=== PATIENT | female | born 1990 | race African-American/Black ===

== ENCOUNTER 2020-09-26 12:51 | Emergency (ER) | payer SELFPAY ==
[2020-09-26 14:14] LABS: #Lymphocytes 1.2 thou/uL (1.20-3.40); #Monocytes 0.4 thou/uL (0.11-0.59); #Neutrophils 1.2 thou/uL (1.40-6.50); %Basophils 1.5 % (0.0-1.0); %Eosinophils 1.7 % (0.0-10.0); %Monocytes 13.4 % (0.0-10.0); %Neutrophils 41.4 % (42.0-75.0); Hemoglobin 12.4 g/dL (12.0-16.0); Mean Corpuscular Hemoglobin 27.6 pg (27.0-31.0); Mean Corpuscular Volume 88.9 fL (78.0-98.0); Mean Platelet Volume 9.8 fL (7.4-10.4); Platelet Count 212 thou/uL (130-400); RBC Distribution Width 14.3 % (11.5-14.5); Red Blood Cell (RBC) Count 4.48 mill/uL (4.20-5.40); White Blood Cell (WBC) Count 2.8 thou/uL (4.8-10.8)
[2020-09-26 14:32] LABS: ALT (SGPT) 13 U/L (8-55); AST (SGOT) 17 U/L (5-34); Albumin 3.5 g/dL (3.5-5.0); Alkaline Phosphatase 54 U/L (40-110); Anion Gap 12 mmol/L (10-20); BUN (Urea Nitrogen) 10 mg/dL (7.0-18.7); Bilirubin, Total 0.7 mg/dL (0.2-1.2); Calc. Creatinine Clearance 0 mL/min (70-130); Calcium 8.8 mg/dL (7.8-10.44); Carbon Dioxide 21 mmol/L (22-29); Chloride 108 mmol/L (98-107); Glucose 102 mg/dL (70-105); Potassium 3.3 mmol/L (3.5-5.1); Protein, Total 8.5 g/dL (6.0-8.3); Sodium 138 mmol/L (136-145)
[2020-09-26] MEDS ORDERED: Ondansetron PF 4 MG/2 ML Vial ONE (14:54)
[2020-09-26] MEDS ORDERED: Sodium Chloride 0.9% 1,000 ML ONE (14:54)
[2020-09-26] MEDS ORDERED: methylPREDNISolone Sod Succ/PF 125 MG/2 ML VIAL ONE (14:54)
[2020-09-26 15:58] LABS: Bilirubin Negative (Negative); Blood, Urine Negative (Negative); Clarity Slightly Cloudy (Clear); Glucose, Urine (Dipstick) Negative (Negative); Ketone, Urine Negative (Negative); Leukocyte Trace (Negative); Nitrite Negative (Negative); Protein, Urine (Dipstick) 30 mg/dL (Neg-Trace); Specific Gravity, Urine 1.025 (1.005-1.030); Urobilinogen 0.2 mg/dL (Less than 2)
[2020-09-26 16:00] LABS: Pregnancy Test - Urine (BHCG) Negative (Negative); Pregu Control Background? CLEAR/WHITE (CLR/WHITE); Pregu Control Bar Appear? YES (CONTROL BAR); Specific Gravity 1.025 (1.002-1.036)
[2020-09-26 16:04] LABS: RBC/HPF 0-3 HPF (0-3)
[2020-09-26 16:05] LABS: Bacteria/HPF 2+ HPF (None Seen)
== END 2020-09-26 16:41 | disposition home or self-care (01) ==
LOC: NAV ERS 12:51
DX: L93.0 Discoid lupus erythematosus (principal); R11.2 Nausea with vomiting, unspecified
CPT/HCPCS: 36415; 80053; 81003; 81015; 81025; 85025; 96374; 96375; J2405; J2930; J7050

== ENCOUNTER 2020-12-08 19:26 | Emergency (ER) | payer SELFPAY ==
[2020-12-08 21:27] LABS: #Basophils 0.1 thou/uL (0.0-0.2); #Eosinphils 0.1 thou/uL (0.0-0.7); #Lymphocytes 1.7 thou/uL (1.20-3.40); #Monocytes 0.5 thou/uL (0.11-0.59); #Neutrophils 1.3 thou/uL (1.40-6.50); %Eosinophils 2.1 % (0.0-10.0); %Lymphocytes 46.1 % (21.0-51.0); %Monocytes 14.4 % (0.0-10.0); %Neutrophils 35.5 % (42.0-75.0); Hemoglobin 13.5 g/dL (12.0-16.0); Mean Corpuscular HGB CONC 31.1 g/dL (32.0-36.0); Mean Corpuscular Hemoglobin 28.7 pg (27.0-31.0); Mean Corpuscular Volume 92.5 fL (78.0-98.0); Platelet Count 250 thou/uL (130-400); RBC Distribution Width 15.5 % (11.5-14.5); Red Blood Cell (RBC) Count 4.71 mill/uL (4.20-5.40); White Blood Cell (WBC) Count 3.8 thou/uL (4.8-10.8)
[2020-12-08] MEDS ORDERED: Promethazine 25 MG TAB ONE (21:35)
[2020-12-08 21:43] LABS: Bilirubin Negative (Negative); Blood, Urine Negative (Negative); Clarity Clear (Clear); Glucose, Urine (Dipstick) Negative (Negative); Ketone, Urine Negative (Negative); Leukocyte Negative (Negative); Nitrite Negative (Negative); Protein, Urine (Dipstick) 100 mg/dL (Neg-Trace); Urobilinogen 0.2 mg/dL (Less than 2); pH, Urine 5.5 (5.0-9.0)
[2020-12-08 21:45] LABS: Pregnancy Test - Urine (BHCG) Negative (Negative); Pregu Control Background? CLEAR/WHITE (CLR/WHITE); Pregu Control Bar Appear? YES (CONTROL BAR)
[2020-12-08 21:45] LABS: ALT (SGPT) 18 U/L (8-55); AST (SGOT) 32 U/L (5-34); Albumin 3.4 g/dL (3.5-5.0); Alkaline Phosphatase 58 U/L (40-110); Anion Gap 13 mmol/L (10-20); BUN (Urea Nitrogen) 8 mg/dL (7.0-18.7); Bilirubin, Total 0.4 mg/dL (0.2-1.2); Calc. Creatinine Clearance 0 mL/min (70-130); Calcium 8.5 mg/dL (7.8-10.44); Carbon Dioxide 19 mmol/L (22-29); Chloride 109 mmol/L (98-107); Globulin 5.9 g/dL (2.4-3.5); Glucose 95 mg/dL (70-105); Lipase 56 U/L (8-78); Potassium 4.7 mmol/L (3.5-5.1); Protein, Total 9.3 g/dL (6.0-8.3); Sodium 136 mmol/L (136-145)
[2020-12-08 21:47] LABS: Bacteria/HPF Rare-Few HPF (None Seen); RBC/HPF 0-3 HPF (0-3); WBC/HPF 0-3 HPF (0-3)
[2020-12-08] MEDS ORDERED: Ondansetron ODT 4 MG TAB ONE (22:42)
== END 2020-12-08 23:56 | disposition short-term general hospital (02) ==
LOC: NAV ERS 19:26
DX: R11.2 Nausea with vomiting, unspecified (principal); R10.816 Epigastric abdominal tenderness; R19.7 Diarrhea, unspecified; I10 Essential (primary) hypertension; R50.9 Fever, unspecified; R63.8 Other symptoms and signs concerning food and fluid intake; R21 Rash and other nonspecific skin eruption; Z79.899 Other long term (current) drug therapy; Z79.01 Long term (current) use of anticoagulants
CPT/HCPCS: 71045; 80053; 81003; 81015; 81025; 83605; 83690; 85025; Q0162; Q0169

== ENCOUNTER 2021-02-02 13:20 | Emergency (ER) | payer OTHER ==
[2021-02-02] MEDS ORDERED: methylPREDNISolone Sod Succ/PF 125 MG/2 ML VIAL ONE (14:34)
[2021-02-02] MEDS ORDERED: Prochlorperazine 10 MG/2 ML VIAL ONE (14:34)
[2021-02-02] MEDS ORDERED: Sodium Chloride 0.9% 1,000 ML ONE (14:34)
[2021-02-02 15:07] LABS: Hemoglobin 12.6 g/dL (12.0-16.0); Mean Corpuscular HGB CONC 31.2 g/dL (32.0-36.0); Mean Corpuscular Hemoglobin 28.4 pg (27.0-31.0); Mean Platelet Volume 9.8 fL (7.4-10.4); Platelet Count 241 thou/uL (130-400); RBC Distribution Width 14.2 % (11.5-14.5); Red Blood Cell (RBC) Count 4.43 mill/uL (4.20-5.40); White Blood Cell (WBC) Count 3.5 thou/uL (4.8-10.8)
[2021-02-02 15:19] LABS: ALT (SGPT) 35 U/L (8-55); AST (SGOT) 31 U/L (5-34); Albumin 3.3 g/dL (3.5-5.0); Alkaline Phosphatase 61 U/L (40-110); Anion Gap 9 mmol/L (10-20); BUN (Urea Nitrogen) 7 mg/dL (7.0-18.7); Bilirubin, Total 0.5 mg/dL (0.2-1.2); Calc. Creatinine Clearance 0 mL/min (70-130); Calcium 8.7 mg/dL (7.8-10.44); Carbon Dioxide 24 mmol/L (22-29); Chloride 107 mmol/L (98-107); Globulin 5.7 g/dL (2.4-3.5); Glucose 96 mg/dL (70-105); Potassium 3.4 mmol/L (3.5-5.1); Sodium 137 mmol/L (136-145)
[2021-02-02 15:21] LABS: Anisocytosis SLIGHT = 6-15 cells (100X) (0-5/hpf); Band 1 % (5-11); Eosinophils 2 % (0-10); Lymphocytes 35 % (21-51); MDiff Complete? YES; Manual Diff?? YES; Monocytes 5 % (0-10); Neutrophil 57 % (42-75)
[2021-02-02] MEDS ORDERED: cloNIDine 0.1 MG TAB ONE (16:34)
[2021-02-02] MEDS ORDERED: Doxycycline 100 MG CAP ONE (16:58)
[2021-02-02] MEDS ORDERED: hydrALAZINE 20 MG/ML VIAL ONE (17:32)
== END 2021-02-02 18:25 | disposition home or self-care (01) ==
LOC: NAV ERS 13:20
DX: R51.9 Headache, unspecified (principal); I10 Essential (primary) hypertension; M32.9 Systemic lupus erythematosus, unspecified; Z79.899 Other long term (current) drug therapy; Z79.01 Long term (current) use of anticoagulants
CPT/HCPCS: 80053; 85025; 96374; 96375; J0360; J0780; J2930; J7050

== ENCOUNTER 2021-03-03 17:37 | Emergency (ER) | payer OTHER, SELFPAY ==
[2021-03-03 18:47] LABS: Bilirubin Negative (Negative); Blood, Urine Large (Negative); Clarity Clear (Clear); Glucose, Urine (Dipstick) Negative (Negative); Ketone, Urine Negative (Negative); Leukocyte Negative (Negative); Nitrite Negative (Negative); Protein, Urine (Dipstick) 30 mg/dL (Neg-Trace); Specific Gravity, Urine 1.025 (1.005-1.030); Urobilinogen 0.2 mg/dL (Less than 2)
[2021-03-03 18:54] LABS: RBC/HPF 0-3 HPF (0-3); Squamous Epithelial 0-3 HPF (0-3); WBC/HPF 0-3 HPF (0-3)
[2021-03-03] MEDS ORDERED: HYDROcodone/Acetaminophen 10/325 mg Tablet ONE (19:08)
[2021-03-03 20:06] LABS: #Basophils 0.1 thou/uL (0.0-0.2); #Lymphocytes 1.2 thou/uL (1.20-3.40); #Monocytes 0.5 thou/uL (0.11-0.59); #Neutrophils 2.1 thou/uL (1.40-6.50); %Basophils 1.5 % (0.0-1.0); %Eosinophils 1.1 % (0.0-10.0); %Lymphocytes 30.9 % (21.0-51.0); %Monocytes 13.6 % (0.0-10.0); %Neutrophils 52.9 % (42.0-75.0); Hemoglobin 13.6 g/dL (12.0-16.0); Mean Corpuscular HGB CONC 30.7 g/dL (32.0-36.0); Mean Corpuscular Hemoglobin 28.5 pg (27.0-31.0); Mean Corpuscular Volume 92.6 fL (78.0-98.0); Mean Platelet Volume 10.2 fL (7.4-10.4); Platelet Count 220 thou/uL (130-400); Red Blood Cell (RBC) Count 4.76 mill/uL (4.20-5.40); White Blood Cell (WBC) Count 3.9 thou/uL (4.8-10.8)
[2021-03-03 20:22] LABS: ALT (SGPT) 20 U/L (8-55); AST (SGOT) 21 U/L (5-34); Albumin 3.4 g/dL (3.5-5.0); Alkaline Phosphatase 67 U/L (40-110); Anion Gap 13 mmol/L (10-20); BUN (Urea Nitrogen) 9 mg/dL (7.0-18.7); Bilirubin, Total 0.6 mg/dL (0.2-1.2); Calc. Creatinine Clearance 0 mL/min (70-130); Calcium 8.9 mg/dL (7.8-10.44); Carbon Dioxide 20 mmol/L (22-29); Chloride 108 mmol/L (98-107); Globulin 5.4 g/dL (2.4-3.5); Glucose 93 mg/dL (70-105); Potassium 3.6 mmol/L (3.5-5.1); Protein, Total 8.8 g/dL (6.0-8.3); Sodium 137 mmol/L (136-145)
[2021-03-03] MEDS ORDERED: predniSONE 20 MG TAB ONE (22:05)
[2021-03-03 22:24] LABS: SARS-CoV-2 NAA Rapid Test DETECTED (NotDetected)
[2021-03-03] MEDS ORDERED: Amlodipine 5 MG TAB ONE (23:04)
== END 2021-03-04 00:54 | disposition home or self-care (01) ==
LOC: NAV ERS 17:37
DX: U07.1 COVID-19 (principal); L30.8 Other specified dermatitis; E66.09 Other obesity due to excess calories; I10 Essential (primary) hypertension; Z79.01 Long term (current) use of anticoagulants; Z79.899 Other long term (current) drug therapy
CPT/HCPCS: 80053; 81003; 81015; 83605; 85025; 87086; 99283; J7512; U0002

== ENCOUNTER 2021-07-06 21:51 | Emergency (ER) | payer SELFPAY ==
[2021-07-06 23:51] LABS: #Basophils 0.1 thou/uL (0.0-0.2); #Eosinphils 0.2 thou/uL (0.0-0.7); #Lymphocytes 1.7 thou/uL (1.20-3.40); #Monocytes 0.5 thou/uL (0.11-0.59); #Neutrophils 2.6 thou/uL (1.40-6.50); %Basophils 1.8 % (0.0-1.0); %Eosinophils 3.3 % (0.0-10.0); %Lymphocytes 33.5 % (21.0-51.0); %Monocytes 10.7 % (0.0-10.0); %Neutrophils 50.7 % (42.0-75.0); Hemoglobin 11.9 g/dL (12.0-16.0); Mean Corpuscular HGB CONC 30.5 g/dL (32.0-36.0); Mean Corpuscular Hemoglobin 26.8 pg (27.0-31.0); Mean Corpuscular Volume 87.9 fL (78.0-98.0); Mean Platelet Volume 10.4 fL (7.4-10.4); Platelet Count 286 thou/uL (130-400); RBC Distribution Width 13.7 % (11.5-14.5); Red Blood Cell (RBC) Count 4.45 mill/uL (4.20-5.40); White Blood Cell (WBC) Count 5.1 thou/uL (4.8-10.8)
[2021-07-07 00:02] LABS: ALT (SGPT) 16 U/L (8-55); AST (SGOT) 23 U/L (5-34); Albumin 3.6 g/dL (3.5-5.0); Alkaline Phosphatase 65 U/L (40-110); Anion Gap 17 mmol/L (10-20); BUN (Urea Nitrogen) 6 mg/dL (7.0-18.7); Bilirubin, Total 0.5 mg/dL (0.2-1.2); CRP (Inflammatory) Less than 0.50 mg/dL (= or < 0.5); Calc. Creatinine Clearance 0 mL/min (70-130); Calcium 9.2 mg/dL (7.8-10.44); Carbon Dioxide 21 mmol/L (22-29); Chloride 107 mmol/L (98-107); Globulin 5.1 g/dL (2.4-3.5); Glucose 99 mg/dL (70-105); Potassium 3.5 mmol/L (3.5-5.1); Protein, Total 8.7 g/dL (6.0-8.3); Sodium 141 mmol/L (136-145)
[2021-07-07] MEDS ORDERED: diphenhydrAMINE 50 MG/ML VIAL ONE (00:17)
[2021-07-07] MEDS ORDERED: Morphine 4 MG/ML VIAL ONE (00:17)
[2021-07-07 01:42] LABS: Clarity Clear (Clear); Glucose, Urine (Dipstick) Negative (Negative); Leukocyte Negative (Negative); Nitrite Negative (Negative); Protein, Urine (Dipstick) 30 mg/dL (Neg-Trace); Specific Gravity, Urine 1.025 (1.005-1.030)
[2021-07-07 01:43] LABS: Bilirubin Small (Negative); Blood, Urine Negative (Negative); Ketone, Urine Trace mg/dL (Negative); Urobilinogen 0.2 mg/dL (Less than 2)
[2021-07-07 01:47] LABS: Bacteria/HPF None Seen HPF (None Seen); RBC/HPF 0-3 HPF (0-3); WBC/HPF 0-3 HPF (0-3)
[2021-07-07] MEDS ORDERED: methylPREDNISolone Sod Succ/PF 125 MG/2 ML VIAL ONE (02:07)
== END 2021-07-07 03:00 | disposition home or self-care (01) ==
LOC: NAV ERS 21:51
DX: L93.1 Subacute cutaneous lupus erythematosus (principal); L40.9 Psoriasis, unspecified; I10 Essential (primary) hypertension; Z79.899 Other long term (current) drug therapy
CPT/HCPCS: 80053; 81003; 81015; 85025; 86140; 96374; 96375; J1200; J2270; J2930

== ENCOUNTER 2021-09-15 15:55 | Emergency (ER) | payer OTHER, SELFPAY | END 2021-09-15 17:43 | disposition home or self-care (01) | LOC: NAV ERS 15:55 | DX: L93.1 Subacute cutaneous lupus erythematosus (principal); I10 Essential (primary) hypertension; Z86.718 Personal history of other venous thrombosis and embolism; Z79.01 Long term (current) use of anticoagulants; Z79.899 Other long term (current) drug therapy | CPT/HCPCS: 99282 ==

== ENCOUNTER 2021-12-07 09:32 | Emergency (ER) | payer BC ==
[2021-12-07] MEDS ORDERED: Acetaminophen/Codeine 30-300mg Tablet ONE (10:29)
[2021-12-07] MEDS ORDERED: Clindamycin 150 MG CAP ONE (10:30)
== END 2021-12-07 10:40 | disposition home or self-care (01) ==
LOC: NAV ERS 09:32
DX: H60.93 Unspecified otitis externa, bilateral (principal); L01.00 Impetigo, unspecified; I10 Essential (primary) hypertension; Z79.899 Other long term (current) drug therapy
CPT/HCPCS: 87070; 87077; 87205; 99283

== ENCOUNTER 2022-02-20 12:35 | Emergency (ER) | payer BC ==
[2022-02-20] MEDS ORDERED: diphenhydrAMINE 50 MG/ML VIAL ONE (13:15)
[2022-02-20] MEDS ORDERED: Vancomycin 1 GM VIAL ONE (13:16)
[2022-02-20] MEDS ORDERED: Sodium Chloride 0.9% 500 ML ONE (13:16)
[2022-02-20] MEDS ORDERED: Fentanyl 100 MCG/2 ML VIAL ONE (13:16)
[2022-02-20 13:44] LABS: #Basophils 0.1 thou/uL (0.0-0.2); #Eosinphils 0.1 thou/uL (0.0-0.7); #Lymphocytes 0.9 thou/uL (1.20-3.40); #Monocytes 0.5 thou/uL (0.11-0.59); #Neutrophils 2.4 thou/uL (1.40-6.50); %Basophils 1.9 % (0.0-1.0); %Eosinophils 3.5 % (0.0-10.0); %Lymphocytes 22.7 % (21.0-51.0); %Monocytes 13.1 % (0.0-10.0); %Neutrophils 58.8 % (42.0-75.0); Hemoglobin 12.5 g/dL (12.0-16.0); Mean Corpuscular HGB CONC 31.4 g/dL (32.0-36.0); Mean Corpuscular Hemoglobin 28.6 pg (27.0-31.0); Mean Platelet Volume 9.4 fL (7.4-10.4); Platelet Count 215 10x3/uL (130-400); RBC Distribution Width 13.3 % (11.5-14.5); Red Blood Cell (RBC) Count 4.37 mill/uL (4.20-5.40); White Blood Cell (WBC) Count 4.1 10x3/uL (4.8-10.8)
[2022-02-20 14:00] LABS: ALT (SGPT) 13 U/L (8-55); AST (SGOT) 16 U/L (5-34); Albumin 3.4 g/dL (3.5-5.0); Alkaline Phosphatase 68 U/L (40-110); Anion Gap 10 mmol/L (10-20); BUN (Urea Nitrogen) 11 mg/dL (7.0-18.7); Bilirubin, Total 0.5 mg/dL (0.2-1.2); Calc. Creatinine Clearance 0 mL/min (70-130); Carbon Dioxide 20 mmol/L (22-29); Chloride 109 mmol/L (98-107); Estimated GFR 84; Globulin 5.8 g/dL (2.4-3.5); Glucose 83 mg/dL (70-105); Potassium 3.3 mmol/L (3.5-5.1); Protein, Total 9.2 g/dL (6.0-8.3); Sodium 136 mmol/L (136-145)
[2022-02-20] MEDS ORDERED: Morphine 4 MG/ML VIAL ONE ×2 (14:53→17:22)
== END 2022-02-20 17:59 | disposition short-term general hospital (02) ==
LOC: NAV ERS 12:35
DX: L03.116 Cellulitis of left lower limb (principal); I10 Essential (primary) hypertension; Z86.718 Personal history of other venous thrombosis and embolism; Z79.01 Long term (current) use of anticoagulants; Z79.899 Other long term (current) drug therapy
CPT/HCPCS: 80053; 83605; 85025; 87040; 96365; 96366; 96375; 96376; J1200; J2270; J3010; J3370; J7030

== ENCOUNTER 2022-04-04 11:47 | Emergency (ER) | payer BC ==
[2022-04-04] MEDS ORDERED: Promethazine HCl 25 MG/ML VIAL ONE (12:36)
[2022-04-04] MEDS ORDERED: Sodium Chloride 0.9% 0 ML ONE (12:36)
[2022-04-04] MEDS ORDERED: Pantoprazole 40 MG VIAL ONE (12:36)
[2022-04-04 15:13] LABS: #Basophils 0.1 thou/uL (0.0-0.2); #Eosinphils 0.1 thou/uL (0.0-0.7); #Lymphocytes 1.4 thou/uL (1.20-3.40); #Monocytes 0.5 thou/uL (0.11-0.59); #Neutrophils 1.9 thou/uL (1.40-6.50); %Eosinophils 1.9 % (0.0-10.0); %Monocytes 12.8 % (0.0-10.0); %Neutrophils 48.2 % (42.0-75.0); Mean Corpuscular HGB CONC 32.2 g/dL (32.0-36.0); Mean Corpuscular Hemoglobin 28.8 pg (27.0-31.0); Mean Corpuscular Volume 89.6 fl (78.0-98.0); Mean Platelet Volume 8.7 fL (7.4-10.4); Platelet Count 229 10x3/uL (130-400); RBC Distribution Width 13.4 % (11.5-14.5); Red Blood Cell (RBC) Count 4.51 mill/uL (4.20-5.40)
[2022-04-04 15:29] LABS: ALT (SGPT) 10 U/L (8-55); AST (SGOT) 15 U/L (5-34); Albumin 3.6 g/dL (3.5-5.0); Alkaline Phosphatase 63 U/L (40-110); Anion Gap 13 mmol/L (10-20); BUN (Urea Nitrogen) 7 mg/dL (7.0-18.7); Bilirubin, Total 0.5 mg/dL (0.2-1.2); Calc. Creatinine Clearance 0 mL/min (70-130); Calcium 9.3 mg/dL (7.8-10.44); Carbon Dioxide 22 mmol/L (22-29); Chloride 109 mmol/L (98-107); Estimated GFR 97; Globulin 5.5 g/dL (2.4-3.5); Glucose 94 mg/dL (70-105); Lipase 31 U/L (8-78); Potassium 3.4 mmol/L (3.5-5.1); Protein, Total 9.1 g/dL (6.0-8.3); Sodium 141 mmol/L (136-145)
[2022-04-04] MEDS ORDERED: Morphine 4 MG/ML VIAL ONE (15:30)
== END 2022-04-04 16:57 | disposition short-term general hospital (02) ==
LOC: NAV ERS 11:47
DX: K29.70 Gastritis, unspecified, without bleeding (principal); H70.003 Acute mastoiditis without complications, bilateral; H60.93 Unspecified otitis externa, bilateral; M32.9 Systemic lupus erythematosus, unspecified; R11.2 Nausea with vomiting, unspecified; I10 Essential (primary) hypertension; Z79.899 Other long term (current) drug therapy
CPT/HCPCS: 70480; 80053; 83690; 85025; 96372; C9113; J2270; J2550; J7050

== ENCOUNTER 2023-03-26 12:38 | Emergency (ER) | payer BC ==
[2023-03-26 15:22] LABS: #Basophils 0.1 thou/uL (0.0-0.2); #Eosinphils 0.1 thou/uL (0.0-0.7); #Lymphocytes 1.4 thou/uL (1.20-3.40); #Neutrophils 5.4 thou/uL (1.40-6.50); %Basophils 1.1 % (0.0-1.0); %Eosinophils 1.6 % (0.0-10.0); %Lymphocytes 17.6 % (21.0-51.0); %Monocytes 12.9 % (0.0-10.0); %Neutrophils 66.8 % (42.0-75.0); Hematocrit 36.5 % (36.0-47.0); Hemoglobin 11.6 g/dL (12.0-16.0); Mean Corpuscular HGB CONC 31.8 g/dL (32.0-36.0); Mean Corpuscular Hemoglobin 26.2 pg (27.0-31.0); Mean Corpuscular Volume 82.4 fl (78.0-98.0); Mean Platelet Volume 11.3 fL (7.4-10.4); Platelet Count 226 10x3/uL (130-400); RBC Distribution Width 15.5 % (11.5-14.5); Red Blood Cell (RBC) Count 4.43 mill/uL (4.20-5.40); White Blood Cell (WBC) Count 8.1 10x3/uL (4.8-10.8)
[2023-03-26] MEDS ORDERED: HYDROcodone/Acetaminophen 10/325 mg Tablet ONE (15:32)
[2023-03-26 15:35] LABS: Anion Gap 13 mmol/L (10-20); BUN (Urea Nitrogen) 6 mg/dL (7.0-18.7); Calc. Creatinine Clearance 0 mL/min (70-130); Calcium 8.8 mg/dL (7.8-10.44); Carbon Dioxide 19 mmol/L (22-29); Chloride 105 mmol/L (98-107); Estimated GFR 100; Glucose 90 mg/dL (70-105); Potassium 3.4 mmol/L (3.5-5.1); Sodium 134 mmol/L (136-145)
== END 2023-03-26 16:53 | disposition home or self-care (01) ==
LOC: NAV ERS 12:38
DX: L08.9 Local infection of the skin and subcutaneous tissue, unspecified (principal); M32.9 Systemic lupus erythematosus, unspecified; I10 Essential (primary) hypertension; Z79.01 Long term (current) use of anticoagulants; Z79.899 Other long term (current) drug therapy; Z86.718 Personal history of other venous thrombosis and embolism
CPT/HCPCS: 36415; 71250; 80048; 83605; 85025

== ENCOUNTER 2023-04-01 11:57 | Emergency (ER) | payer BC ==
[2023-04-01] MEDS ORDERED: Ondansetron PF 4 MG/2 ML Vial ONE (12:40)
[2023-04-01] MEDS ORDERED: Morphine 2 MG/ML VIAL ONE (12:40)
[2023-04-01] MEDS ORDERED: Sodium Chloride 0.9% 1,000 ML ONE (12:45)
[2023-04-01] MEDS ORDERED: Clindamycin/D5W 900 mg/50 ml Premix Bag ONE (12:45)
[2023-04-01 13:45] LABS: Hematocrit 36.2 % (36.0-47.0); Hemoglobin 11.8 g/dL (12.0-16.0); Mean Corpuscular HGB CONC 32.7 g/dL (32.0-36.0); Mean Corpuscular Hemoglobin 26.2 pg (27.0-31.0); Platelet Count 305 10x3/uL (130-400); RBC Distribution Width 14.6 % (11.5-14.5); Red Blood Cell (RBC) Count 4.52 mill/uL (4.20-5.40); White Blood Cell (WBC) Count 3.4 10x3/uL (4.8-10.8)
[2023-04-01 13:58] LABS: Band 6 % (5-11); Eosinophils 4 % (0-10); Lymphocytes 36 % (21-51); MDiff Complete? YES; Monocytes 4 % (0-10); Neutrophil 47 % (42-75); Platelet Adequacy Comment Appears Adequate
[2023-04-01 14:10] LABS: ALT (SGPT) 8 U/L (8-55); AST (SGOT) 15 U/L (5-34); Albumin 3.2 g/dL (3.5-5.0); Alkaline Phosphatase 54 U/L (40-110); Anion Gap 14 mmol/L (10-20); BUN (Urea Nitrogen) 6 mg/dL (7.0-18.7); Bilirubin, Total 0.5 mg/dL (0.2-1.2); Calc. Creatinine Clearance 0 mL/min (70-130); Carbon Dioxide 19 mmol/L (22-29); Chloride 107 mmol/L (98-107); Estimated GFR 108; Globulin 6.1 g/dL (2.4-3.5); Glucose 95 mg/dL (70-105); Potassium 3.8 mmol/L (3.5-5.1); Protein, Total 9.3 g/dL (6.0-8.3); Sodium 136 mmol/L (136-145)
[2023-04-01] MEDS ORDERED: HYDROcodone/Acetaminophen 10/325 mg Tablet ONE (14:33)
== END 2023-04-01 15:45 | disposition home or self-care (01) ==
LOC: NAV ERS 11:57
DX: L03.312 Cellulitis of back [any part except buttock and flank] (principal); I10 Essential (primary) hypertension; Z86.718 Personal history of other venous thrombosis and embolism; Z79.899 Other long term (current) drug therapy; R11.2 Nausea with vomiting, unspecified
CPT/HCPCS: 80053; 83605; 85025; 87040; 87070; 87077; 87205; 96361; 96374; 96375; J2272; J2405; J3490; J7050

== ENCOUNTER 2023-04-17 12:29 | Emergency (ER) | payer BC ==
[2023-04-17 15:19] LABS: #Basophils 0.1 thou/uL (0.0-0.2); #Eosinphils 0.1 thou/uL (0.0-0.7); #Lymphocytes 1.7 thou/uL (1.20-3.40); #Monocytes 0.6 thou/uL (0.11-0.59); #Neutrophils 2.2 thou/uL (1.40-6.50); %Basophils 1.1 % (0.0-1.0); %Eosinophils 1.6 % (0.0-10.0); %Lymphocytes 36.2 % (21.0-51.0); %Monocytes 13.8 % (0.0-10.0); %Neutrophils 47.4 % (42.0-75.0); Hematocrit 41.2 % (36.0-47.0); Mean Corpuscular HGB CONC 31.5 g/dL (32.0-36.0); Mean Corpuscular Hemoglobin 26.4 pg (27.0-31.0); Mean Corpuscular Volume 83.9 fl (78.0-98.0); Platelet Count 211 10x3/uL (130-400); RBC Distribution Width 16.3 % (11.5-14.5); Red Blood Cell (RBC) Count 4.91 mill/uL (4.20-5.40); White Blood Cell (WBC) Count 4.7 10x3/uL (4.8-10.8)
[2023-04-17 15:29] LABS: Bilirubin Small (Negative); Blood, Urine Small (Negative); Clarity Turbid (Clear); Glucose, Urine (Dipstick) Negative (Negative); Ketone, Urine Trace mg/dL (Negative); Leukocyte Large (Negative); Nitrite Negative (Negative); Protein, Urine (Dipstick) 100 mg/dL (Neg-Trace); Specific Gravity, Urine 1.025 (1.005-1.030); Urobilinogen 0.2 mg/dL (Less than 2)
[2023-04-17 15:30] LABS: Bacteria/HPF 1+ HPF (None Seen); CAUTI Indications for Culture Dysuria,urgency,freq; WBC/HPF 21-50 HPF (0-3)
[2023-04-17 15:31] LABS: Urine Culture Reflex Yes Yes
[2023-04-17] MEDS ORDERED: diphenhydrAMINE 25 MG CAP ONE (15:57)
[2023-04-17] MEDS ORDERED: HYDROcodone/Acetaminophen 10/325 mg Tablet ONE (15:57)
[2023-04-17 19:13] LABS: Pregnancy Test - Urine (BHCG) Negative (Negative); Pregu Control Background? CLEAR/WHITE (CLR/WHITE); Pregu Control Bar Appear? YES (CONTROL BAR); Specific Gravity 1.025 (1.002-1.036)
[2023-04-17] MEDS ORDERED: Fluconazole 100 MG TAB ONE (20:05)
[2023-04-17] MEDS ORDERED: metroNIDAZOLE 500 MG TAB ONE (20:07)
[2023-04-17] MEDS ORDERED: Nitrofurantoin Macrocrystal 50 MG CAP ONE (20:08)
[2023-04-17] MEDS ORDERED: Ibuprofen 200 MG TAB ONE (20:10)
[2023-04-18 11:22] LABS: Chlamydia by PCR, Vaginal Swab Not Detected (NotDetected); GC by PCR, Vaginal Swab Not Detected (NotDetected)
[2023-04-18 16:08] LABS: Chlam.trachomatis by PCR,Urine Not Detected (NotDetected)
[2023-04-19 01:36] LABS: GC N.gonorrhoeae PCR,UrineVOID Not Detected (NotDetected)
== END 2023-04-17 21:01 | disposition home or self-care (01) ==
LOC: NAV ERS 12:29
DX: N89.8 Other specified noninflammatory disorders of vagina (principal); L40.9 Psoriasis, unspecified; N39.0 Urinary tract infection, site not specified; M32.9 Systemic lupus erythematosus, unspecified; I10 Essential (primary) hypertension; Z79.899 Other long term (current) drug therapy
CPT/HCPCS: 36415; 71046; 81001; 81025; 83880; 85025; 87086; 87480; 87491; 87510; 87591; 87660

== ENCOUNTER 2023-07-23 10:17 | Emergency (ER) | payer BC ==
[2023-07-23] MEDS ORDERED: Ondansetron ODT 4 MG TAB ONE (11:03)
[2023-07-23] MEDS ORDERED: Morphine 4 MG/ML VIAL ONE (11:03)
== END 2023-07-23 11:27 | disposition home or self-care (01) ==
LOC: NAV ERS 10:17
DX: L02.212 Cutaneous abscess of back [any part, except buttock and flank] (principal); I10 Essential (primary) hypertension; Z86.718 Personal history of other venous thrombosis and embolism; Z79.01 Long term (current) use of anticoagulants
CPT/HCPCS: 96372; 99282; J2270; Q0162

== ENCOUNTER 2023-07-25 14:12 | Emergency (ER) | payer BC | END 2023-07-25 19:30 | disposition short-term general hospital (02) | LOC: NAV ERS 14:12 | DX: L02.212 Cutaneous abscess of back [any part, except buttock and flank] (principal); I10 Essential (primary) hypertension; Z86.718 Personal history of other venous thrombosis and embolism; Z79.899 Other long term (current) drug therapy; Z79.01 Long term (current) use of anticoagulants | CPT/HCPCS: 99284 ==

== ENCOUNTER 2023-07-31 15:21 | Emergency (ER) | payer BC | END 2023-07-31 16:55 | disposition home or self-care (01) | LOC: NAV ERS 15:21 | DX: L02.212 Cutaneous abscess of back [any part, except buttock and flank] (principal); I10 Essential (primary) hypertension; Z79.899 Other long term (current) drug therapy | CPT/HCPCS: 99282 ==

== ENCOUNTER 2023-08-04 09:19 | Emergency (ER) | payer BC | END 2023-08-04 10:00 | disposition home or self-care (01) | LOC: NAV ERS 09:19 | DX: L02.212 Cutaneous abscess of back [any part, except buttock and flank] (principal); I10 Essential (primary) hypertension; Z86.718 Personal history of other venous thrombosis and embolism; Z79.01 Long term (current) use of anticoagulants; Z79.899 Other long term (current) drug therapy | CPT/HCPCS: 99282 ==

== ENCOUNTER 2023-08-08 16:38 | Emergency (ER) | payer BC ==
[2023-08-08 17:30] LABS: #Basophils 0.1 thou/uL (0.0-0.2); #Eosinphils 0.2 thou/uL (0.0-0.7); #Monocytes 0.6 thou/uL (0.11-0.59); %Basophils 1.4 % (0.0-1.0); %Lymphocytes 27.4 % (21.0-51.0); %Monocytes 14.5 % (0.0-10.0); %Neutrophils 51.8 % (42.0-75.0); Hematocrit 38.9 % (36.0-47.0); Hemoglobin 11.8 g/dL (12.0-16.0); Mean Corpuscular HGB CONC 30.4 g/dL (32.0-36.0); Mean Corpuscular Hemoglobin 26.1 pg (27.0-31.0); Mean Corpuscular Volume 85.7 fl (78.0-98.0); Mean Platelet Volume 8.3 fL (7.4-10.4); Platelet Count 171 10x3/uL (130-400); RBC Distribution Width 13.8 % (11.5-14.5); Red Blood Cell (RBC) Count 4.54 mill/uL (4.20-5.40); White Blood Cell (WBC) Count 3.8 10x3/uL (4.8-10.8)
[2023-08-08 17:43] LABS: ALT (SGPT) 13 U/L (8-55); AST (SGOT) 15 U/L (5-34); Albumin 3.4 g/dL (3.5-5.0); Alkaline Phosphatase 73 U/L (40-110); Anion Gap 12 mmol/L (10-20); BUN (Urea Nitrogen) 8 mg/dL (7.0-18.7); Bilirubin, Total 0.8 mg/dL (0.2-1.2); Calc. Creatinine Clearance 0 mL/min (70-130); Calcium 8.6 mg/dL (7.8-10.44); Carbon Dioxide 17 mmol/L (22-29); Chloride 109 mmol/L (98-107); Estimated GFR 90; Globulin 5.5 g/dL (2.4-3.5); Glucose 126 mg/dL (70-105); Potassium 3.4 mmol/L (3.5-5.1); Protein, Total 8.9 g/dL (6.0-8.3); Sodium 135 mmol/L (136-145)
[2023-08-08] MEDS ORDERED: diphenhydrAMINE 50 MG/ML VIAL ONE (19:17)
[2023-08-08] MEDS ORDERED: HYDROcodone/Acetaminophen 5/325 mg Tablet ONE (19:19)
== END 2023-08-08 19:44 | disposition short-term general hospital (02) ==
LOC: NAV ERS 16:38
DX: B37.9 Candidiasis, unspecified (principal); M32.9 Systemic lupus erythematosus, unspecified; I10 Essential (primary) hypertension; Z86.718 Personal history of other venous thrombosis and embolism; Z79.01 Long term (current) use of anticoagulants; Z79.899 Other long term (current) drug therapy
CPT/HCPCS: 36415; 80053; 85025; 96374; J1200

== ENCOUNTER 2023-08-27 16:39 | Emergency (ER) | payer BC ==
[2023-08-27] MEDS ORDERED: Benzonatate 100 MG CAP ONE (17:55)
[2023-08-27] MEDS ORDERED: Azithromycin 250 MG TAB ONE (17:55)
[2023-08-27] MEDS ORDERED: Bacitracin 1 PK ONE (17:58)
[2023-08-27 18:54] LABS: Influenza A by NAA Not Detected (NotDetected); Influenza B by NAA Not Detected (NotDetected); SARS-CoV-2 NAA Rapid Test DETECTED (NotDetected)
[2023-08-27 18:57] LABS: Bilirubin Small (Negative); Blood, Urine Negative (Negative); Glucose, Urine (Dipstick) Negative (Negative); Ketone, Urine Negative (Negative); Leukocyte Trace (Negative); Nitrite Negative (Negative); Protein, Urine (Dipstick) 30 mg/dL (Neg-Trace); Urobilinogen 0.2 mg/dL (Less than 2); pH, Urine 6.5 (5.0-9.0)
[2023-08-27 18:58] LABS: Clarity Hazy (Clear)
[2023-08-27 18:59] LABS: Bacteria/HPF Rare-Few HPF (None Seen); CAUTI Indications for Culture Fever or rigors; Mucous/LPF 1+ LPF (<2+); RBC/HPF None Seen HPF (0-3); Squamous Epithelial 0-3 HPF (0-3); WBC/HPF 0-3 HPF (0-3)
[2023-08-27 19:01] LABS: Urine Culture Reflex No No
== END 2023-08-27 19:15 | disposition home or self-care (01) ==
LOC: NAV ERS 16:39
DX: U07.1 COVID-19 (principal); J18.9 Pneumonia, unspecified organism; L02.416 Cutaneous abscess of left lower limb; I10 Essential (primary) hypertension; Z86.718 Personal history of other venous thrombosis and embolism; Z79.899 Other long term (current) drug therapy; Z79.01 Long term (current) use of anticoagulants
CPT/HCPCS: 71046; 81001; 87070; 87077; 87205

== ENCOUNTER 2023-08-29 15:59 | Emergency (ER) | payer BC ==
[2023-08-29 17:33] LABS: #Basophils 0.1 thou/uL (0.0-0.2); #Eosinphils 0.2 thou/uL (0.0-0.7); #Lymphocytes 1.5 thou/uL (1.20-3.40); #Monocytes 0.7 thou/uL (0.11-0.59); #Neutrophils 2.2 thou/uL (1.40-6.50); %Basophils 1.1 % (0.0-1.0); %Eosinophils 5.2 % (0.0-10.0); %Monocytes 14.5 % (0.0-10.0); %Neutrophils 47.1 % (42.0-75.0); Hematocrit 39.2 % (36.0-47.0); Hemoglobin 11.9 g/dL (12.0-16.0); Mean Corpuscular HGB CONC 30.4 g/dL (32.0-36.0); Mean Corpuscular Volume 85.4 fl (78.0-98.0); Mean Platelet Volume 8.8 fL (7.4-10.4); Platelet Count 198 10x3/uL (130-400); RBC Distribution Width 13.6 % (11.5-14.5); Red Blood Cell (RBC) Count 4.58 mill/uL (4.20-5.40); White Blood Cell (WBC) Count 4.7 10x3/uL (4.8-10.8)
[2023-08-29] MEDS ORDERED: Sodium Chloride 0.9% 1,000 ML ONE ×2 (17:35→20:26)
[2023-08-29] MEDS ORDERED: methylPREDNISolone Sod Succ/PF 125 MG/2 ML VIAL ONE (17:35)
[2023-08-29] MEDS ORDERED: Ipratropium/Albuterol 3 ML NEB ONE (17:35)
[2023-08-29 17:52] LABS: ALT (SGPT) 14 U/L (8-55); AST (SGOT) 17 U/L (5-34); Albumin 3.1 g/dL (3.5-5.0); Alkaline Phosphatase 69 U/L (40-110); Anion Gap 9 mmol/L (10-20); BUN (Urea Nitrogen) 8 mg/dL (7.0-18.7); Bilirubin, Total 0.6 mg/dL (0.2-1.2); Calc. Creatinine Clearance 0 mL/min (70-130); Calcium 8.6 mg/dL (7.8-10.44); Carbon Dioxide 23 mmol/L (22-29); Chloride 109 mmol/L (98-107); Estimated GFR 80; Globulin 6.2 g/dL (2.4-3.5); Glucose 102 mg/dL (70-105); Potassium 3.4 mmol/L (3.5-5.1); Protein, Total 9.3 g/dL (6.0-8.3); Sodium 138 mmol/L (136-145)
[2023-08-29] MEDS ORDERED: Cephalexin 250 MG CAP ONE (18:50)
[2023-08-29] MEDS ORDERED: Acetaminophen 500 MG TAB ONE (18:50)
[2023-08-29] MEDS ORDERED: diphenhydrAMINE 50 MG/ML VIAL ONE (19:01)
[2023-08-29] MEDS ORDERED: Azithromycin 500 MG VIAL ONE (19:01)
[2023-08-29] MEDS ORDERED: Lisinopril 10 MG TAB ONE (19:01)
[2023-08-29] MEDS ORDERED: Morphine 2 MG/ML VIAL ONE (19:01)
[2023-08-29] MEDS ORDERED: Sodium Chloride 0.9% 250 ML 250 ML ONE (19:03)
== END 2023-08-29 20:58 | disposition home or self-care (01) ==
LOC: NAV ERS 15:59
DX: U07.1 COVID-19 (principal); J12.82 Pneumonia due to coronavirus disease 2019; I10 Essential (primary) hypertension; R79.1 Abnormal coagulation profile; Z86.73 Personal history of transient ischemic attack (TIA), and cerebral infarction without residual deficits; Z79.01 Long term (current) use of anticoagulants
CPT/HCPCS: 71045; 80053; 83605; 85025; 85379; 87040; 94640; 96361; 96365; 96366; 96375; J0456; J1200; J2272; J2930; J7050; J7620

== ENCOUNTER 2023-09-20 11:52 | Emergency (ER) | payer BC ==
[2023-09-20] MEDS ORDERED: hydrALAZINE 10 MG TAB ONE (19:10)
[2023-09-20] MEDS ORDERED: diphenhydrAMINE 25 MG CAP ONE (21:12)
== END 2023-09-20 21:55 | disposition home or self-care (01) ==
LOC: NAV ERS 11:52
DX: M32.9 Systemic lupus erythematosus, unspecified (principal); L30.4 Erythema intertrigo; I10 Essential (primary) hypertension
CPT/HCPCS: 99282

== ENCOUNTER 2023-09-21 17:45 | Emergency (ER) | payer BC ==
[2023-09-21] MEDS ORDERED: diphenhydrAMINE 50 MG/ML VIAL ONE ×2 (18:58→20:44)
[2023-09-21] MEDS ORDERED: Morphine 4 MG/ML VIAL ONE ×2 (19:07→21:31)
[2023-09-21] MEDS ORDERED: Fluconazole 100 MG TAB ONE (19:13)
[2023-09-21] MEDS ORDERED: Ondansetron PF 4 MG/2 ML Vial ONE (19:13)
[2023-09-21] MEDS ORDERED: Clindamycin/D5W 900 mg/50 ml Premix Bag ONE (19:15)
[2023-09-21 19:19] LABS: #Eosinphils 0.2 thou/uL (0.0-0.7); #Monocytes 0.4 thou/uL (0.11-0.59); #Neutrophils 1.4 thou/uL (1.40-6.50); %Basophils 0.8 % (0.0-1.0); %Eosinophils 5.4 % (0.0-10.0); %Lymphocytes 35.1 % (21.0-51.0); %Monocytes 13.3 % (0.0-10.0); %Neutrophils 45.3 % (42.0-75.0); Hematocrit 35.8 % (36.0-47.0); Hemoglobin 11.2 g/dL (12.0-16.0); Mean Corpuscular HGB CONC 31.3 g/dL (32.0-36.0); Mean Corpuscular Hemoglobin 26.6 pg (27.0-31.0); Mean Corpuscular Volume 85.1 fl (78.0-98.0); Mean Platelet Volume 7.7 fL (7.4-10.4); Platelet Count 228 10x3/uL (130-400); RBC Distribution Width 13.7 % (11.5-14.5)
[2023-09-21 19:33] LABS: ALT (SGPT) 12 U/L (8-55); AST (SGOT) 16 U/L (5-34); Albumin 2.8 g/dL (3.5-5.0); Alkaline Phosphatase 82 U/L (40-110); Anion Gap 12 mmol/L (10-20); BUN (Urea Nitrogen) 5 mg/dL (7.0-18.7); Bilirubin, Total 0.6 mg/dL (0.2-1.2); Calc. Creatinine Clearance 0 mL/min (70-130); Calcium 8.7 mg/dL (7.8-10.44); Carbon Dioxide 19 mmol/L (22-29); Chloride 110 mmol/L (98-107); Estimated GFR 93; Globulin 5.5 g/dL (2.4-3.5); Glucose 89 mg/dL (70-105); Potassium 3.5 mmol/L (3.5-5.1); Protein, Total 8.3 g/dL (6.0-8.3); Sodium 137 mmol/L (136-145)
== END 2023-09-21 22:55 | disposition short-term general hospital (02) ==
LOC: NAV ERS 17:45
DX: M32.9 Systemic lupus erythematosus, unspecified (principal); I10 Essential (primary) hypertension; Z86.718 Personal history of other venous thrombosis and embolism; Z79.899 Other long term (current) drug therapy; Z79.01 Long term (current) use of anticoagulants
CPT/HCPCS: 80053; 85025; 96374; 96375; 96376; J1200; J2272; J2405; J3490

== ENCOUNTER 2023-11-19 10:11 | Emergency (ER) | payer BC | END 2023-11-19 10:52 | disposition home or self-care (01) | LOC: NAV ERS 10:11 | DX: S71.111D Laceration without foreign body, right thigh, subsequent encounter (principal); I10 Essential (primary) hypertension; Z79.899 Other long term (current) drug therapy; Z86.718 Personal history of other venous thrombosis and embolism; Z79.01 Long term (current) use of anticoagulants; X58.XXXD Exposure to other specified factors, subsequent encounter ==

== ENCOUNTER 2023-11-21 19:40 | Emergency (ER) | payer BC ==
[2023-11-21 21:12] LABS: #Basophils 0.1 thou/uL (0.0-0.2); #Eosinphils 0.1 thou/uL (0.0-0.7); #Lymphocytes 1.1 thou/uL (1.20-3.40); #Monocytes 0.6 thou/uL (0.11-0.59); #Neutrophils 2.7 thou/uL (1.40-6.50); %Basophils 1.4 % (0.0-1.0); %Eosinophils 2.4 % (0.0-10.0); %Lymphocytes 24.5 % (21.0-51.0); %Monocytes 12.6 % (0.0-10.0); Hematocrit 41.5 % (36.0-47.0); Mean Corpuscular HGB CONC 31.3 g/dL (32.0-36.0); Mean Corpuscular Hemoglobin 27.7 pg (27.0-31.0); Mean Corpuscular Volume 88.6 fl (78.0-98.0); Mean Platelet Volume 9.4 fL (7.4-10.4); Platelet Count 240 10x3/uL (130-400); RBC Distribution Width 12.9 % (11.5-14.5); Red Blood Cell (RBC) Count 4.68 mill/uL (4.20-5.40); White Blood Cell (WBC) Count 4.6 10x3/uL (4.8-10.8)
[2023-11-21 21:30] LABS: Anion Gap 15 mmol/L (10-20); BUN (Urea Nitrogen) 15 mg/dL (7.0-18.7); Calc. Creatinine Clearance 0 mL/min (70-130); Calcium 8.6 mg/dL (7.8-10.44); Carbon Dioxide 20 mmol/L (22-29); Chloride 107 mmol/L (98-107); Estimated GFR 76; Glucose 79 mg/dL (70-105); Potassium 4.2 mmol/L (3.5-5.1); Sodium 138 mmol/L (136-145)
[2023-11-21] MEDS ORDERED: traMADol HCl 50 MG TAB ONE (22:38)
== END 2023-11-21 22:51 | disposition home or self-care (01) ==
LOC: NAV ERS 19:40
DX: L98.9 Disorder of the skin and subcutaneous tissue, unspecified (principal); M32.9 Systemic lupus erythematosus, unspecified; E66.1 Drug-induced obesity; I10 Essential (primary) hypertension; Z86.718 Personal history of other venous thrombosis and embolism; Z79.899 Other long term (current) drug therapy; Z79.01 Long term (current) use of anticoagulants
CPT/HCPCS: 80048; 85025; 99283

== ENCOUNTER 2023-11-22 11:52 | Emergency (ER) | payer BC ==
[2023-11-22 13:14] LABS: #Basophils 0.1 thou/uL (0.0-0.2); #Eosinphils 0.1 thou/uL (0.0-0.7); #Lymphocytes 0.8 thou/uL (1.20-3.40); #Monocytes 0.6 thou/uL (0.11-0.59); #Neutrophils 2.9 thou/uL (1.40-6.50); %Basophils 1.4 % (0.0-1.0); %Eosinophils 1.6 % (0.0-10.0); %Lymphocytes 17.3 % (21.0-51.0); %Monocytes 14.1 % (0.0-10.0); %Neutrophils 65.6 % (42.0-75.0); Hematocrit 39.1 % (36.0-47.0); Hemoglobin 12.3 g/dL (12.0-16.0); Mean Corpuscular HGB CONC 31.5 g/dL (32.0-36.0); Mean Corpuscular Hemoglobin 27.7 pg (27.0-31.0); Mean Platelet Volume 9.9 fL (7.4-10.4); Platelet Count 259 10x3/uL (130-400); RBC Distribution Width 12.9 % (11.5-14.5); Red Blood Cell (RBC) Count 4.44 mill/uL (4.20-5.40); White Blood Cell (WBC) Count 4.4 10x3/uL (4.8-10.8)
[2023-11-22 13:28] LABS: ALT (SGPT) 9 U/L (8-55); AST (SGOT) 19 U/L (5-34); Alkaline Phosphatase 69 U/L (40-110); Anion Gap 13 mmol/L (10-20); BUN (Urea Nitrogen) 11 mg/dL (7.0-18.7); Bilirubin, Total 0.6 mg/dL (0.2-1.2); Calc. Creatinine Clearance 0 mL/min (70-130); Calcium 9.5 mg/dL (7.8-10.44); Carbon Dioxide 19 mmol/L (22-29); Chloride 108 mmol/L (98-107); Estimated GFR 91; Globulin 5.6 g/dL (2.4-3.5); Glucose 89 mg/dL (70-105); Potassium 3.3 mmol/L (3.5-5.1); Protein, Total 8.6 g/dL (6.0-8.3); Sodium 137 mmol/L (136-145)
[2023-11-22] MEDS ORDERED: methylPREDNISolone Sod Succ/PF 125 MG/2 ML VIAL ONE (18:04)
[2023-11-22] MEDS ORDERED: diphenhydrAMINE 25 MG CAP ONE (18:04)
== END 2023-11-22 20:06 | disposition short-term general hospital (02) ==
LOC: NAV ERS 11:52
DX: M32.9 Systemic lupus erythematosus, unspecified (principal); L03.319 Cellulitis of trunk, unspecified; L40.9 Psoriasis, unspecified; I10 Essential (primary) hypertension; Z86.718 Personal history of other venous thrombosis and embolism; Z79.01 Long term (current) use of anticoagulants; Z79.899 Other long term (current) drug therapy
CPT/HCPCS: 70360; 71045; 80053; 83605; 85025; 96372; J2919

== ENCOUNTER 2023-12-24 12:28 | Emergency (ER) | payer BC ==
[2023-12-24] MEDS ORDERED: Sodium Chloride 0.9% 1,000 ML ONE (13:09)
[2023-12-24] MEDS ORDERED: Aspirin Chewable 81 MG TAB ONE (13:09)
[2023-12-24 13:37] LABS: #Eosinophils 0.2 thou/uL (0.0-0.7); #Lymphocytes 1.3 thou/uL (1.20-3.40); #Monocytes 0.6 thou/uL (0.11-0.59); #Neutrophils 2.3 thou/uL (1.40-6.50); %Basophils 0.8 % (0.0-1.0); %Eosinophils 3.8 % (0.0-10.0); %Lymphocytes 29.6 % (21.0-51.0); %Monocytes 13.7 % (0.0-10.0); %Neutrophils 52.1 % (42.0-75.0); Hematocrit 36.1 % (36.0-47.0); Hemoglobin 11.7 g/dL (12.0-16.0); Mean Corpuscular HGB CONC 32.3 g/dL (32.0-36.0); Mean Corpuscular Hemoglobin 27.6 pg (27.0-31.0); Mean Corpuscular Volume 85.4 fl (78.0-98.0); Mean Platelet Volume 8.6 fL (7.4-10.4); Platelet Count 282 10x3/uL (130-400); RBC Distribution Width 12.4 % (11.5-14.5); Red Blood Cell (RBC) Count 4.23 mill/uL (4.20-5.40); White Blood Cell (WBC) Count 4.4 10x3/uL (4.8-10.8)
[2023-12-24] MEDS ORDERED: Morphine 2 MG/ML VIAL ONE ×2 (13:57→16:15)
[2023-12-24] MEDS ORDERED: Nitroglycerin 0.4 MG TAB 1 EACH ONE (13:57)
[2023-12-24 14:00] LABS: ALT (SGPT) 13 U/L (8-55); AST (SGOT) 15 U/L (5-34); Albumin 3.1 g/dL (3.5-5.0); Alkaline Phosphatase 69 U/L (40-110); Anion Gap 14 mmol/L (10-20); BUN (Urea Nitrogen) 11 mg/dL (7.0-18.7); Bilirubin, Total 0.7 mg/dL (0.2-1.2); Calc. Creatinine Clearance 0 mL/min (70-130); Calcium 8.9 mg/dL (7.8-10.44); Carbon Dioxide 22 mmol/L (22-29); Chloride 107 mmol/L (98-107); Estimated GFR 87; Globulin 5.5 g/dL (2.4-3.5); Glucose 107 mg/dL (70-105); Potassium 3.3 mmol/L (3.5-5.1); Protein, Total 8.6 g/dL (6.0-8.3); Sodium 140 mmol/L (136-145)
[2023-12-24 14:01] LABS: Troponin I Less than 0.010 ng/mL (< 0.028)
[2023-12-24 15:08] LABS: BHCG - Serum Negative (NEGATIVE); Pregs Control Bar Appear? YES (CONTROL BAR)
[2023-12-24] MEDS ORDERED: Ondansetron PF 4 MG/2 ML Vial ONE (16:15)
[2023-12-24] MEDS ORDERED: Labetalol HCl 100 MG/20 ML VIAL ONE (16:15)
[2023-12-24] MEDS ORDERED: Lisinopril 10 MG TAB ONE (16:15)
[2023-12-24 16:58] LABS: Troponin I Less than 0.010 ng/mL (< 0.028)
== END 2023-12-24 18:40 | disposition short-term general hospital (02) ==
LOC: NAV ERS 12:28
DX: R51.9 Headache, unspecified (principal); I10 Essential (primary) hypertension
CPT/HCPCS: 70450; 71046; 80053; 84484; 84703; 85025; 93005; J2272; J2405; J7030

== ENCOUNTER 2024-01-29 09:35 | Emergency (ER) | payer BC ==
[2024-01-29] MEDS ORDERED: HYDROcodone/Acetaminophen 5/325 mg Tablet ONE (10:47)
[2024-01-29 11:34] LABS: #Lymphocytes 0.8 thou/uL (1.20-3.40); #Neutrophils 1.9 thou/uL (1.40-6.50); %Basophils 1.1 % (0.0-1.0); %Eosinophils 2.9 % (0.0-10.0); %Lymphocytes 22.3 % (21.0-51.0); %Monocytes 17.7 % (0.0-10.0); Hematocrit 35.9 % (36.0-47.0); Hemoglobin 11.8 g/dL (12.0-16.0); Manual Diff?? NO; Mean Corpuscular HGB CONC 32.9 g/dL (32.0-36.0); Mean Corpuscular Hemoglobin 27.5 pg (27.0-31.0); Mean Corpuscular Volume 83.5 fl (78.0-98.0); Mean Platelet Volume 8.2 fL (7.4-10.4); Platelet Count 231 10x3/uL (130-400); RBC Distribution Width 12.4 % (11.5-14.5); White Blood Cell (WBC) Count 3.4 10x3/uL (4.8-10.8)
[2024-01-29 11:35] LABS: #Eosinophils 0.1 thou/uL (0.0-0.7); #Monocytes 0.6 thou/uL (0.11-0.59); ALT (SGPT) 16 U/L (8-55); AST (SGOT) 17 U/L (5-34); Alkaline Phosphatase 79 U/L (40-110); Anion Gap 9 mmol/L (10-20); BUN (Urea Nitrogen) 9 mg/dL (7.0-18.7); Bilirubin, Total 0.4 mg/dL (0.2-1.2); Calc. Creatinine Clearance 0 mL/min (70-130); Calcium 8.3 mg/dL (7.8-10.44); Carbon Dioxide 22 mmol/L (22-29); Chloride 107 mmol/L (98-107); Estimated GFR 92; Globulin 6.5 g/dL (2.4-3.5); Glucose 105 mg/dL (70-105); Potassium 3.4 mmol/L (3.5-5.1); Protein, Total 9.5 g/dL (6.0-8.3); Sodium 135 mmol/L (136-145)
[2024-01-29 11:41] LABS: Troponin I Less than 0.010 ng/mL (< 0.028)
[2024-01-29] MEDS ORDERED: diphenhydrAMINE 25 MG CAP ONE (12:10)
== END 2024-01-29 12:15 | disposition home or self-care (01) ==
LOC: NAV ERS 09:35
DX: R07.89 Other chest pain (principal); M79.602 Pain in left arm; B02.9 Zoster without complications; I10 Essential (primary) hypertension; Z86.718 Personal history of other venous thrombosis and embolism; Z79.899 Other long term (current) drug therapy; Z79.01 Long term (current) use of anticoagulants
CPT/HCPCS: 71045; 80053; 84484; 85025; 93005; 94760

== ENCOUNTER 2024-01-30 17:58 | Emergency (ER) | payer BC ==
[2024-01-30] MEDS ORDERED: Metoclopramide HCl 10 MG (2 mL) VIAL ONE (19:17)
[2024-01-30] MEDS ORDERED: diphenhydrAMINE 50 MG/ML VIAL ONE (19:17)
[2024-01-30] MEDS ORDERED: Sodium Chloride 0.9% 1,000 ML ONE (19:18)
== END 2024-01-30 22:28 | disposition home or self-care (01) ==
LOC: NAV ERS 17:58
DX: B02.9 Zoster without complications (principal); R51.9 Headache, unspecified; I10 Essential (primary) hypertension
CPT/HCPCS: 96365; 96366; 96375; J1200; J1642; J2765; J7030

== ENCOUNTER 2024-02-05 17:47 | Emergency (ER) | payer BC ==
[2024-02-05] MEDS ORDERED: Sodium Chloride 0.9% 1,000 ML ONE (20:17)
[2024-02-05] MEDS ORDERED: diphenhydrAMINE 50 MG/ML VIAL ONE (20:17)
[2024-02-05] MEDS ORDERED: Prochlorperazine 10 MG/2 ML VIAL ONE (20:17)
[2024-02-05] MEDS ORDERED: HYDROcodone/Acetaminophen 5/325 mg Tablet ONE (20:18)
[2024-02-05 20:20] LABS: #Eosinophils 0.2 thou/uL (0.0-0.7); #Lymphocytes 1.7 thou/uL (1.20-3.40); #Monocytes 0.6 thou/uL (0.11-0.59); #Neutrophils 2.6 thou/uL (1.40-6.50); %Basophils 0.9 % (0.0-1.0); %Eosinophils 4.2 % (0.0-10.0); %Lymphocytes 33.3 % (21.0-51.0); %Monocytes 12.3 % (0.0-10.0); %Neutrophils 49.4 % (42.0-75.0); Hemoglobin 11.2 g/dL (12.0-16.0); Mean Corpuscular HGB CONC 32.9 g/dL (32.0-36.0); Mean Corpuscular Hemoglobin 27.2 pg (27.0-31.0); Mean Corpuscular Volume 82.7 fl (78.0-98.0); Mean Platelet Volume 9.7 fL (7.4-10.4); Platelet Count 231 10x3/uL (130-400); RBC Distribution Width 12.9 % (11.5-14.5); Red Blood Cell (RBC) Count 4.11 mill/uL (4.20-5.40); White Blood Cell (WBC) Count 5.2 10x3/uL (4.8-10.8)
[2024-02-05 20:32] LABS: Anion Gap 12 mmol/L (10-20); BUN (Urea Nitrogen) 9 mg/dL (7.0-18.7); Calc. Creatinine Clearance 0 mL/min (70-130); Calcium 8.4 mg/dL (7.8-10.44); Carbon Dioxide 21 mmol/L (22-29); Chloride 108 mmol/L (98-107); Estimated GFR 102; Glucose 91 mg/dL (70-105); Potassium 3.2 mmol/L (3.5-5.1); Sodium 138 mmol/L (136-145)
[2024-02-05] MEDS ORDERED: Potassium Chloride 20 MEQ TAB ONE (21:00)
[2024-02-05] MEDS ORDERED: Metoprolol Tartrate 25 MG TAB ONE (21:21)
[2024-02-05] MEDS ORDERED: Lisinopril 10 MG TAB ONE ×2 (21:22→23:11)
== END 2024-02-05 23:30 | disposition home or self-care (01) ==
LOC: NAV ERS 17:47
DX: R51.9 Headache, unspecified (principal); M32.9 Systemic lupus erythematosus, unspecified; G35 Multiple sclerosis; H53.9 Unspecified visual disturbance; I10 Essential (primary) hypertension; G45.9 Transient cerebral ischemic attack, unspecified; Z79.899 Other long term (current) drug therapy; Z79.01 Long term (current) use of anticoagulants
CPT/HCPCS: 70450; 80048; 85025; 96374; 96375; J0780; J1200; J1642; J7030

== ENCOUNTER 2024-02-10 11:40 | Emergency (ER) | payer BC ==
[~2024-02-10 11:40] MED LIST: Iopamidol 370 76% 100 ML VIAL ONE
[2024-02-10 12:43] LABS: #Eosinophils 0.1 thou/uL (0.0-0.7); #Lymphocytes 1.3 thou/uL (1.20-3.40); #Monocytes 0.9 thou/uL (0.11-0.59); #Neutrophils 4.6 thou/uL (1.40-6.50); %Basophils 0.7 % (0.0-1.0); %Eosinophils 1.8 % (0.0-10.0); %Lymphocytes 18.2 % (21.0-51.0); %Monocytes 12.8 % (0.0-10.0); %Neutrophils 66.4 % (42.0-75.0); Hematocrit 34.9 % (36.0-47.0); Hemoglobin 11.3 g/dL (12.0-16.0); Mean Corpuscular HGB CONC 32.4 g/dL (32.0-36.0); Mean Corpuscular Hemoglobin 27.3 pg (27.0-31.0); Mean Corpuscular Volume 84.2 fl (78.0-98.0); Mean Platelet Volume 9.1 fL (7.4-10.4); Platelet Count 266 10x3/uL (130-400); RBC Distribution Width 13.3 % (11.5-14.5); Red Blood Cell (RBC) Count 4.14 mill/uL (4.20-5.40)
[2024-02-10] MEDS ORDERED: Sodium Chloride 0.9% 1,000 ML ONE (12:43)
[2024-02-10] MEDS ORDERED: Ondansetron PF 4 MG/2 ML Vial ONE (12:43)
[2024-02-10] MEDS ORDERED: Acetaminophen 500 MG TAB ONE (12:43)
[2024-02-10 12:55] LABS: BHCG - Serum Negative (NEGATIVE); Pregs Control Bar Appear? YES (CONTROL BAR)
[2024-02-10 12:57] LABS: ALT (SGPT) 30 U/L (8-55); AST (SGOT) 20 U/L (5-34); Albumin 2.9 g/dL (3.5-5.0); Alkaline Phosphatase 73 U/L (40-110); Anion Gap 14 mmol/L (10-20); BUN (Urea Nitrogen) 7 mg/dL (7.0-18.7); Calc. Creatinine Clearance 0 mL/min (70-130); Calcium 8.6 mg/dL (7.8-10.44); Carbon Dioxide 19 mmol/L (22-29); Chloride 106 mmol/L (98-107); Estimated GFR 95; Globulin 6.3 g/dL (2.4-3.5); Glucose 100 mg/dL (70-105); Potassium 3.5 mmol/L (3.5-5.1); Protein, Total 9.2 g/dL (6.0-8.3); Sodium 135 mmol/L (136-145)
[2024-02-10] MEDS ORDERED: Morphine 4 MG/ML VIAL ONE ×3 (13:04→18:54)
[2024-02-10] MEDS ORDERED: diphenhydrAMINE 50 MG/ML VIAL ONE ×2 (13:18→16:42)
[2024-02-10] MEDS ORDERED: methylPREDNISolone Sod Succ/PF 125 MG/2 ML VIAL ONE (14:26)
[2024-02-10] MEDS ORDERED: Dextrose 5 % And 0.9 % NaCl 1,000 ML ONE (15:10)
[2024-02-10] MEDS ORDERED: Enoxaparin 120 MG/0.8 ML SYRINGE SC ONE (15:10)
[2024-02-11 11:22] LABS: MONO NEGATIVE CONTROL ZONE White (Negative) (White); Mononucleosis NEGATIVE (NEGATIVE)
[2024-02-11 11:23] LABS: MONO POSITIVE CONTROL Pink Line (Positive) (PINK/RED)
== END 2024-02-10 20:10 | disposition short-term general hospital (02) ==
LOC: NAV ERS 11:40
DX: I82.C11 Acute embolism and thrombosis of right internal jugular vein (principal); R59.0 Localized enlarged lymph nodes; I10 Essential (primary) hypertension; Z79.899 Other long term (current) drug therapy
CPT/HCPCS: 70491; 80053; 84703; 85025; 86308; 87081; 87430; 96361; 96372; 96374; 96375; 96376; J1200; J1650; J2272; J2405; J2919; J7030; J7042; Q9967

== ENCOUNTER 2024-04-05 11:57 | Emergency (ER) | payer BC ==
[2024-04-05] MEDS ORDERED: Morphine 4 MG/ML VIAL ONE (12:34)
[2024-04-05] MEDS ORDERED: Sodium Chloride 0.9% 1,000 ML ONE (12:35)
[2024-04-05] MEDS ORDERED: Ondansetron PF 4 MG/2 ML Vial ONE (12:35)
[2024-04-05 12:57] LABS: #Eosinophils 0.2 thou/uL (0.0-0.7); #Lymphocytes 1.2 thou/uL (1.20-3.40); #Monocytes 0.7 thou/uL (0.11-0.59); #Neutrophils 3.3 thou/uL (1.40-6.50); %Basophils 0.8 % (0.0-1.0); %Lymphocytes 21.7 % (21.0-51.0); %Neutrophils 61.4 % (42.0-75.0); Hematocrit 25.6 % (36.0-47.0); Hemoglobin 8.1 g/dL (12.0-16.0); Mean Corpuscular HGB CONC 31.5 g/dL (32.0-36.0); Mean Corpuscular Hemoglobin 25.6 pg (27.0-31.0); Mean Corpuscular Volume 81.4 fl (78.0-98.0); Mean Platelet Volume 7.9 fL (7.4-10.4); Platelet Count 352 10x3/uL (130-400); RBC Distribution Width 15.7 % (11.5-14.5); Red Blood Cell (RBC) Count 3.14 mill/uL (4.20-5.40); White Blood Cell (WBC) Count 5.4 10x3/uL (4.8-10.8)
[2024-04-05 13:03] LABS: INR-International Normal Ratio 1.1; Prothrombin Time 14.4 sec (12.0-14.7)
[2024-04-05 13:04] LABS: PTT 33.7 sec (22.9-36.1)
[2024-04-05 13:11] LABS: ALT (SGPT) 7 U/L (Less than 34); AST (SGOT) 12 U/L (11-34); Albumin 2.7 g/dL (3.1-4.5); Alkaline Phosphatase 70 U/L (40-110); Anion Gap 14 mmol/L (10-20); BUN (Urea Nitrogen) 11 mg/dL (7.0-18.7); Bilirubin, Total 0.4 mg/dL (0.3-1.2); Calc. Creatinine Clearance 0 mL/min (70-130); Calcium 8.9 mg/dL (7.8-10.44); Carbon Dioxide 19 mmol/L (22-29); Chloride 108 mmol/L (98-107); Estimated GFR 54; Globulin 5.6 g/dL (2.4-3.5); Glucose 97 mg/dL (70-105); Potassium 4.1 mmol/L (3.5-5.1); Protein, Total 8.3 g/dL (6.0-8.3); Sodium 137 mmol/L (136-145)
[2024-04-05 13:12] LABS: Base Excess-Venous -1.2 mmol/L (-2.0 to 3.0); Bicarbonate (HCO3v) 23.3 mmol/L (22.0-28.0); CO2 Tension (PvCO2) 36.9 mmHg (42.0-51.0); Calcium, Ionized 1.22 mmol/L (1.15-1.33); Chloride 108 mmol/L (98-107); Hemoglobin - Calc 9.2 g/dL (12.0-16.0); Sodium 142 mmol/L (138-145); T. Carbon Dioxide 24.4 mmol/L (22.0-28.0); vO2 Saturation-calc 84.6 % (60.0-85.0)
[2024-04-05] MEDS ORDERED: Morphine 2 MG/ML VIAL ONE ×3 (13:31→18:13)
[2024-04-05] MEDS ORDERED: diphenhydrAMINE 50 MG/ML VIAL ONE ×2 (14:04→15:12)
[2024-04-05] MEDS ORDERED: HYDROcodone/Acetaminophen 10/325 mg Tablet ONE (17:11)
[2024-04-05] MEDS ORDERED: Promethazine HCl 25 MG/ML VIAL ONE (17:36)
== END 2024-04-05 19:15 | disposition home or self-care (01) ==
LOC: NAV ERS 11:57
DX: L76.22 Postprocedural hemorrhage of skin and subcutaneous tissue following other procedure (principal); I10 Essential (primary) hypertension; Z79.899 Other long term (current) drug therapy
CPT/HCPCS: 36415; 80053; 82330; 82435; 82803; 83605; 84132; 84295; 85014; 85025; 85610; 85730; 87040; 96361; 96374; 96375; 96376; J1200; J2270; J2272; J2405; J2550; J7030

== ENCOUNTER 2024-04-14 13:52 | Emergency (ER) | payer BC ==
[2024-04-14] MEDS ORDERED: Morphine 4 MG/ML VIAL ONE ×2 (14:29→16:23)
[2024-04-14] MEDS ORDERED: Sodium Chloride 0.9% 1,000 ML ONE (14:29)
[2024-04-14] MEDS ORDERED: Ondansetron PF 4 MG/2 ML Vial ONE (14:29)
[2024-04-14 14:42] LABS: #Basophils 0.1 thou/uL (0.0-0.2); #Eosinophils 0.3 thou/uL (0.0-0.7); #Lymphocytes 1.3 thou/uL (1.20-3.40); #Monocytes 0.6 thou/uL (0.11-0.59); #Neutrophils 2.6 thou/uL (1.40-6.50); %Basophils 1.1 % (0.0-1.0); %Eosinophils 5.6 % (0.0-10.0); %Lymphocytes 26.2 % (21.0-51.0); %Monocytes 12.7 % (0.0-10.0); %Neutrophils 54.5 % (42.0-75.0); Hematocrit 27.6 % (36.0-47.0); Hemoglobin 8.4 g/dL (12.0-16.0); Mean Corpuscular HGB CONC 30.6 g/dL (32.0-36.0); Mean Corpuscular Hemoglobin 25.4 pg (27.0-31.0); Mean Corpuscular Volume 83.2 fl (78.0-98.0); Mean Platelet Volume 7.2 fL (7.4-10.4); Platelet Count 293 10x3/uL (130-400); RBC Distribution Width 15.6 % (11.5-14.5); Red Blood Cell (RBC) Count 3.32 mill/uL (4.20-5.40); White Blood Cell (WBC) Count 4.8 10x3/uL (4.8-10.8)
[2024-04-14] MEDS ORDERED: diphenhydrAMINE 50 MG/ML VIAL ONE ×2 (14:49→17:06)
[2024-04-14] MEDS ORDERED: Famotidine/PF 20 mg/2ml Vial ONE (14:49)
[2024-04-14] MEDS ORDERED: methylPREDNISolone Sod Succ/PF 125 MG/2 ML VIAL ONE ×2 (14:49→16:23)
[2024-04-14] MEDS ORDERED: Linezolid 600 MG in Premix 1 BAG IVPB SCH (15:00)
[2024-04-14 15:05] LABS: ALT (SGPT) Less than 7 U/L (Less than 34); AST (SGOT) 16 U/L (11-34); Albumin 3.2 g/dL (3.1-4.5); Alkaline Phosphatase 61 U/L (40-110); Anion Gap 14 mmol/L (10-20); BUN (Urea Nitrogen) 9 mg/dL (7.0-18.7); Bilirubin, Total 0.5 mg/dL (0.3-1.2); Calc. Creatinine Clearance 0 mL/min (70-130); Calcium 9.4 mg/dL (7.8-10.44); Carbon Dioxide 17 mmol/L (22-29); Chloride 111 mmol/L (98-107); Estimated GFR 64; Globulin 5.7 g/dL (2.4-3.5); Glucose 93 mg/dL (70-105); Potassium 3.6 mmol/L (3.5-5.1); Protein, Total 8.9 g/dL (6.0-8.3); Sodium 138 mmol/L (136-145)
[2024-04-14 16:25] LABS: Bilirubin Negative (Negative); Blood, Urine Negative (Negative); Clarity Clear (Clear); Glucose, Urine (Dipstick) Negative (Negative); Ketone, Urine Negative (Negative); Leukocyte Small (Negative); Nitrite Negative (Negative); Protein, Urine (Dipstick) 30 mg/dL (Neg-Trace); Specific Gravity, Urine 1.015 (1.005-1.030); Urobilinogen 0.2 mg/dL (Less than 2)
[2024-04-14 16:28] LABS: Bacteria/HPF 1+ HPF (None Seen); CAUTI Indications for Culture Dysuria,urgency,freq; RBC/HPF 0-3 HPF (0-3)
[2024-04-14 16:30] LABS: Urine Culture Reflex No No
[2024-04-14] MEDS ORDERED: Dextrose 5 % And 0.9 % NaCl 1,000 ML ONE (17:46)
[2024-04-14] MEDS ORDERED: Morphine 2 MG/ML VIAL ONE (19:06)
[2024-04-14] MEDS ORDERED: Promethazine HCl 25 MG/ML VIAL ONE (19:43)
[2024-04-14] MEDS ORDERED: NIFEdipine XL 30 MG ER.TAB ONE (20:28)
== END 2024-04-14 22:22 | disposition short-term general hospital (02) ==
LOC: NAV ERS 13:52
DX: G89.18 Other acute postprocedural pain (principal); R10.31 Right lower quadrant pain; D64.9 Anemia, unspecified; R11.0 Nausea
CPT/HCPCS: 74177; 80053; 81001; 85025; 96361; 96365; 96366; 96367; 96368; 96375; 96376; J1200; J2020; J2270; J2272; J2405; J2550; J2919; J3490; J7030; J7042; Q9967